=== PATIENT | female | born 1985 | race Caucasian/White ===

== ENCOUNTER 2017-12-28 11:28 | Emergency (ER) | payer SELFPAY ==
--- NOTE | 2017-12-28 12:13 | ER Document Report ---
HPI - HPI Patient complains to provider of: 40 pound weight fell on left foot Onset: Yesterday Pain Level: 3 Context: 32-year-old female moving to this area dropped a 40 pound weight on her left foot putting her bed back together, swollen and bruised. No previous injury. Associated Symptoms: None Exacerbated by: Walking Relieved by: Denies Similar symptoms previously: No Recently seen / treated by doctor: No - ROS ROS below otherwise negative: Yes Systems Reviewed and Negative: Yes All other systems reviewed and negative - MUSCULOSKELETAL Musculoskeletal: REPORTS: Extremity pain Past Medical History - General Information source: Patient - Social History Smoking Status: Unknown if Ever Smoked Lives with: Spouse/Significant other Family History: Reviewed & Not Pertinent Patient has suicidal ideation: No Patient has homicidal ideation: No - Medical History Medical History: Negative Renal/ Medical History: Denies: Hx Peritoneal Dialysis Surgical Hx: Negative Vertical Provider Document - CONSTITUTIONAL Agree With Documented VS: Yes - INFECTION CONTROL TRAVEL OUTSIDE OF THE [place] IN LAST 30 DAYS: No - MUSCULOSKELETAL/EXTREMETIES Musculoskeletal/Extremeties: MAEW, FROM, Tender, Edema - dorsal left foot over distal 1st MT, 2+ DP, Eccymosis - NEURO Level of Consciousness: Awake Course - Re-evaluation Re-evalutation: 12/28/17 12:41 X-rays negative per radiologist Chapo bandage/crutches will help and I will prescribe some Motrin and she can take Tylenol as well. 12/28/17 12:56 Procedures - Immobilization Left Foot Time completed: 12:52 Pre-Proc Neuro Vasc Exam: Normal Immobilizer type: Chapo wrap Performed by: PCT Post-Proc Neuro Vasc Exam: Normal Alignment checked and good: Yes Discharge - Discharge Clinical Impression: Contusion, Crush injury Condition: Good Disposition: HOME, SELF-CARE Instructions: Contusion ([facility]), Crush Injury ([facility]), Acetaminophen, Ibuprofen ( General) ([facility]), Chapo Wrap ([facility]) Additional Instructions: Chapo wrap for comfort Tylenol up to 4000 mg a day for pain Motrin 800 mg up to 3 times a day for pain See the orthopedic doctor if he continued to have a problem after 2 weeks Prescriptions: Ibuprofen [Motrin 800 mg Tablet] 800 mg PO Q8HP PRN #30 tablet PRN Reason: Referrals: AARON NICOLAS MD [ACTIVE STAFF] - Follow up as needed
[2017-12-28 12:23] VITALS: BP 109/61
--- NOTE | 2017-12-28 12:40 | RADIOLOGY REPORT (SQ) ---
EXAM DESCRIPTION: FOOT LEFT COMPLETE COMPLETED DATE/TIME: 12/28/2017 12:18 pm REASON FOR STUDY: crush injury COMPARISON: None. NUMBER OF VIEWS: Three views. TECHNIQUE: AP, lateral and oblique radiographic images acquired of the left foot. LIMITATIONS: None. FINDINGS: MINERALIZATION: Normal. BONES: No acute fracture or dislocation. No worrisome bone lesions. JOINTS: No effusions. SOFT TISSUES: No soft tissue swelling. No foreign body. OTHER: No other significant finding. IMPRESSION: NEGATIVE STUDY OF THE LEFT FOOT. NO RADIOGRAPHIC EVIDENCE OF ACUTE INJURY. TECHNICAL DOCUMENTATION: JOB ID: [id number] [employer]- All Rights Reserved Reading location - IP/workstation name: [email or web address]
== END 2017-12-28 12:52 | disposition home or self-care (01) ==
LOC: ER 11:28
DX: S90.32XA Contusion of left foot, initial encounter (principal); W20.8XXA Other cause of strike by thrown, projected or falling object, initial encounter; Y92.003 Bedroom of unspecified non-institutional (private) residence as the place of occurrence of the external cause
CPT/HCPCS: 99283

== ENCOUNTER 2018-02-15 12:39 | Emergency (ER) | payer SELFPAY ==
[2018-02-15] MEDS ORDERED: NORMAL SALINE 1000 ML 1,000 ML IV ONE (13:07)
[2018-02-15] MEDS ORDERED: DIPHENHYDRAMINE HCL 50 MG/ML VIAL IV ONE (13:08)
[2018-02-15] MEDS ORDERED: PROCHLORPERAZINE EDISYLATE INJ 10 MG/2 ML VIAL IV ONE (13:09)
--- NOTE | 2018-02-15 13:14 | ER Document Report ---
ED General - General Chief Complaint: Headache >24 hrs old Stated Complaint: HEADACHE Time Seen by Provider: 02/15/18 13:07 Mode of Arrival: Ambulatory Information source: Patient Notes: 32-year-old female presents emergency department with complaints of a headache for the last 7 days. Patient states that the headache is a sharp and stabbing sensation that starts at the temples and radiates to the occipital area into the neck. Patient had associated blurred vision and nausea. Patient states that she has had similar headaches in the past but they usually go away with Advil. Patient states that she has been taking Advil but the headache has not gone away after 7 days. It's been constant. Patient denies a history of migraine headaches. She denies any trauma, injury, fever, chills, speech changes, numbness, tingling, or weakness. I have greeted and performed a rapid initial assessment of this patient. A comprehensive ED assessment and evaluation of the patient, analysis of test results and completion of the medical decision making process will be conducted by additional ED providers. PHYSICAL EXAMINATION: GENERAL: Well-appearing, well-nourished and in no acute distress. HEAD: Atraumatic, normocephalic. EYES: Pupils equal round extraocular movements intact, conjunctiva are normal. ENT: Nares patent NECK: Normal range of motion. No tenderness to palpation of the paracervical muscles. LUNGS: No respiratory distress Musculoskeletal: Normal range of motion NEUROLOGICAL: Normal speech, normal gait. PSYCH: Normal mood, normal affect. SKIN: Warm, Dry, normal turgor, no rashes or lesions noted. TRAVEL OUTSIDE OF THE [place] IN LAST 30 DAYS: No - Related Data Allergies/Adverse Reactions: amoxicillin Allergy (Verified 02/15/18 12:41) Past Medical History - Social History Smoking Status: Never Smoker Chew tobacco use (# tins/day): No Frequency of alcohol use: None Drug Abuse: None Family History: Reviewed & Not Pertinent Patient has suicidal ideation: No Patient has homicidal ideation: No Renal/ Medical History: Denies: Hx Peritoneal Dialysis Past Surgical History: Reports: Hx Gynecologic Surgery - cone biopsy Physical Exam - Vital signs Vitals: Temp Pulse Resp BP Pulse Ox 97.8 F 71 20 119/65 100 02/15/18 12:48 02/15/18 12:48 02/15/18 12:48 02/15/18 12:48 02/15/18 12:48 Course - Vital Signs Vital signs: Temp Pulse Resp BP Pulse Ox 97.8 F 71 20 119/65 100 02/15/18 12:48 02/15/18 12:48 02/15/18 12:48 02/15/18 12:48 02/15/18 12:48
[2018-02-15] MEDS ORDERED: DIPHENHYDRAMINE HCL 25 MG CAPSULE ONE (13:23)
[2018-02-15] MEDS ORDERED: DIPHENHYDRAMINE HCL 25 MG CAPSULE PO ONE (13:24)
[2018-02-15 13:58] LABS: APPEARANCE,URINE SLIGHTLY-CLOUDY; BILIRUBIN,URINE NEGATIVE (NEGATIVE); COLOR,URINE YELLOW; GLUCOSE, URINE NEGATIVE (NEGATIVE); KETONES,URINE NEGATIVE (NEGATIVE); LEUKOCYTE ESTERASE,URINE NEGATIVE (NEGATIVE); NITRITE,URINE NEGATIVE (NEGATIVE); PROTEIN,URINE NEGATIVE (NEGATIVE); URINE SPECIFIC GRAVITY 1.021; UROBILINOGEN,URINE NEGATIVE mg/dL (<2.0)
--- NOTE | 2018-02-15 14:11 | ER Document Report ---
ED General - General Mode of Arrival: Ambulatory Information source: Patient TRAVEL OUTSIDE OF THE [place] IN LAST 30 DAYS: No - General Chief Complaint: Headache >24 hrs old Stated Complaint: HEADACHE Time Seen by Provider: 02/15/18 13:07 Notes: Patient is a 32 year old female with PCOS and anxiety presents to the emergency department complaining of a headache onset approximately 1 week ago. Patient describes her headache as a sharp and stabbing located at her temples that radiates into her occipital region and neck. Patient's associated symptoms include nausea, blurry vision, photophobia and numbness and tingling in fingers and hands bilaterally. Patient states she has had similar headaches in the past that is normally relieved with 200 mg of Advil. She states this current headache is different due to it radiating into her neck and not being relieved with Advil. Patient denies any recent heavy lifting. Patient states she feels better after receiving Benadryl and Compazine in triage. Patient is currently prescribed Xanax and Metformin. (DIANA HAYES) - Related Data Allergies/Adverse Reactions: amoxicillin Allergy (Verified 02/15/18 12:41) Past Medical History - General Information source: Patient - Social History Smoking Status: Never Smoker Chew tobacco use (# tins/day): No Frequency of alcohol use: None Drug Abuse: None Family History: Reviewed & Not Pertinent Patient has suicidal ideation: No Patient has homicidal ideation: No Psychiatric Medical History: Reports: Hx Anxiety Past Surgical History: Reports: Hx Gynecologic Surgery - cone biopsy Review of Systems - Review of Systems Constitutional: No symptoms reported EENT: See HPI, Blurred vision Cardiovascular: No symptoms reported Respiratory: No symptoms reported Gastrointestinal: See HPI, Nausea Genitourinary: No symptoms reported Female Genitourinary: No symptoms reported Musculoskeletal: No symptoms reported Skin: No symptoms reported Hematologic/Lymphatic: No symptoms reported Neurological/Psychological: See HPI, Headaches -: Yes All other systems reviewed and negative Physical Exam - General General appearance: Appears well - Wearing sunglasses at bedside., Alert In distress: None - HEENT Head: Normocephalic, Atraumatic, Tenderness - left parietal, occipital, temporal regions tender to palpation. Mucous membranes: Normal Neck: Other - Tender to palpation to the left posterior cervical muscles. Left trapezius tender to palpation. - Respiratory Respiratory status: No respiratory distress Chest status: Nontender Breath sounds: Normal Chest palpation: Normal - Cardiovascular Rhythm: Regular Heart sounds: Normal auscultation Murmur: No Friction rub: No Gallop: None auscultated - Abdominal Inspection: Normal - Back Back: Normal - Extremities General upper extremity: Normal ROM General lower extremity: Normal ROM - Neurological Neuro grossly intact: Yes Cognition: Normal Orientation: AAOx4 [place] Coma Scale Eye Opening: Spontaneous [place] Coma Scale Verbal: Oriented [place] Coma Scale Motor: Obeys Commands [place] Coma Scale Total: 15 Speech: Normal - Psychological Associated symptoms: Normal affect, Normal mood - Skin Skin Temperature: Warm Skin Moisture: Dry Skin Color: Normal - Vital signs Vitals: Temp Pulse Resp BP Pulse Ox 97.8 F 71 20 119/65 100 02/15/18 12:48 02/15/18 12:48 02/15/18 12:48 02/15/18 12:48 02/15/18 12:48 - Vital Signs Vital signs: Temp Pulse Resp BP Pulse Ox 97.7 F 70 20 109/70 99 02/15/18 14:22 02/15/18 14:22 02/15/18 12:48 02/15/18 14:22 02/15/18 14:22 - Laboratory Laboratory results interpreted by me: 02/15/18 13:20 Urine Blood SMALL H Discharge - Discharge Clinical Impression: Muscle tension headache Condition: Stable Disposition: HOME, SELF-CARE Additional Instructions: Tension Headache: Your problem has been diagnosed as muscle tension headache. This very common type of headache occurs because of tightness in the muscles of the head and neck. The cause may be neck or jaw joint problems, but most commonly the cause is emotional stress. The headache may last hours or days. The treatment of uncomplicated tension headaches is rest and pain medication. Often, the newer antiinflammatory pain medications are prescribed, as these also decrease the irritability of the painful tissues. Muscle relaxers , cold packs, or warm packs are sometimes helpful. Anti-anxiety medication or narcotics are sometimes needed temporarily, but are best avoided in the long run. Your doctor has evaluated your headache problem, and finds no evidence of a serious health problem as a cause for the headache. If your headache becomes more severe, or if new symptoms develop (such as fever, stiff neck, vomiting, or decreasing alertness) you should be re-examined by the physician. Try ice packs and/or moist heat applied to the painful muscles in your neck and scalp. Take the Compazine as prescribed with a dose of Benadryl and ibuprofen for headache as needed. Follow-up with a local medical doctor if not improving. RETURN TO THE EMERGENCY ROOM IF ANY NEW OR WORSENING SYMPTOMS. Prescriptions: Prochlorperazine Maleate [Compazine 10 mg Tablet] 10 mg PO ASDIR PRN #10 tablet PRN Reason: Referrals: ARUN RODRIGUEZ MD [Primary Care Provider] - Follow up as needed Raegan Attestation: 02/15/18 14:11 I personally performed the services described in the documentation, reviewed and edited the documentation which was dictated to the scribe in my presence, and it accurately records my words and actions. (GRISELDA CANTRELL) Fernandeze Documentation - Scribe Written by Raegan:: Raegan Leon, 02/15/2018 14:25 acting as scribe for :: Elvia
[2018-02-15 14:30] VITALS: BP 109/70
== END 2018-02-15 14:28 | disposition home or self-care (01) ==
LOC: ER 12:39
DX: G44.209 Tension-type headache, unspecified, not intractable (principal); F41.9 Anxiety disorder, unspecified; E28.2 Polycystic ovarian syndrome; R11.0 Nausea; H53.8 Other visual disturbances; H53.149 Visual discomfort, unspecified; R20.0 Anesthesia of skin; R20.2 Paresthesia of skin; Z79.899 Other long term (current) drug therapy
CPT/HCPCS: 99284; 96361; 96374; 81025; 81001; J0780; J7030

== ENCOUNTER 2019-02-17 21:24 | Emergency (ER) | payer OTHER ==
[2019-02-17 22:06] VITALS: BP 124/71
[2019-02-17] MEDS ORDERED: ACETAMINOPHEN 325 MG TABLET PO ONE (22:29)
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
--- NOTE | 2019-02-18 04:53 | RADIOLOGY REPORT (SQ) ---
CLINICAL HISTORY: head injury COMPARISON: None. TECHNIQUE: CT HEAD WITHOUT IV CONTRAST on 02/18/2019 1:55 AM CDT This exam was performed according to our departmental dose-optimization program, which includes automated exposure control, adjustment of the mA and/or kV according to patient size and/or use of iterative reconstruction technique. FINDINGS: There is no acute hemorrhage, mass effect or midline shift. Boggs-white differentiation is preserved. There is no hydrocephalus. There is no significant volume loss for age. There is a large left frontal scalp hematoma. The calvarium is intact. Orbits and globes are unremarkable. The paranasal sinuses are clear. There is fluid in bilateral mastoid air cells. IMPRESSION: No acute intracranial findings.
== END 2019-02-18 04:35 | disposition left against medical advice (07) ==
LOC: ER 21:24
DX: S06.0X0A Concussion without loss of consciousness, initial encounter (principal); R51 Headache; R41.0 Disorientation, unspecified; V87.7XXA Person injured in collision between other specified motor vehicles (traffic), initial encounter
CPT/HCPCS: 70450

== ENCOUNTER 2019-06-29 12:35 | Emergency (ER) | payer SELFPAY ==
--- NOTE | 2019-06-29 14:50 | ER Document Report ---
ED Flu Like - General Chief Complaint: Flu Symptoms Stated Complaint: EAR PAIN/BODYACHES/HEADACHES Time Seen by Provider: 06/29/19 14:44 Primary Care Provider: ARUN RODRIGUEZ MD [CONVERSION] - Follow up as needed Mode of Arrival: Ambulatory Information source: Patient Notes: 33-year-old female presented to ED for cough cold congestion sinus headache and fever off and on since 20 June. She states she has had more fevers and body aches for the last 2 to 3 days. Patient is alert oriented respirations regular nonlabored speaking in full sentences. TRAVEL OUTSIDE OF THE [place] IN LAST 30 DAYS: No - HPI Onset: Other - More than a week Timing/Duration: Intermittent Quality of pain: Achy, Pressure Severity: Mild Pain Level: 1 Associated symptoms: Body/muscle aches, Fever, Rhinnorhea, Sinus pain/drainage Similar symptoms previously: Yes Recently seen / treated by doctor: No - Related Data Allergies/Adverse Reactions: amoxicillin Allergy (Verified 06/29/19 14:43) Past Medical History - General Information source: Patient - Social History Smoking Status: Never Smoker Frequency of alcohol use: Rare Drug Abuse: None Lives with: Family Family History: Reviewed & Not Pertinent - Past Medical History Cardiac Medical History: Reports: Hx Hypercholesterolemia Pulmonary Medical History: Reports: None EENT Medical History: Reports: None Neurological Medical History: Reports: None Endocrine Medical History: Reports: None Renal/ Medical History: Reports: Hx Ovarian Cysts Malignancy Medical History: Reports: None GI Medical History: Reports: None Musculoskeletal Medical History: Reports None Skin Medical History: Reports None Psychiatric Medical History: Reports: Hx Anxiety, Hx Bipolar Disorder Traumatic Medical History: Reports: None Infectious Medical History: Reports: None Past Surgical History: Reports: Hx Gynecologic Surgery - cone biopsy - Immunizations Immunizations up to date: Yes Hx Diphtheria, Pertussis, Tetanus Vaccination: Yes Review of Systems - Review of Systems Constitutional: No symptoms reported EENT: No symptoms reported Cardiovascular: No symptoms reported Respiratory: No symptoms reported Gastrointestinal: No symptoms reported Genitourinary: No symptoms reported Female Genitourinary: No symptoms reported Musculoskeletal: No symptoms reported Skin: No symptoms reported Hematologic/Lymphatic: No symptoms reported Neurological/Psychological: No symptoms reported -: Yes All other systems reviewed and negative Physical Exam - Vital signs Vitals: Temp Pulse Resp BP Pulse Ox 98.1 F 70 20 136/77 H 96 06/29/19 12:44 06/29/19 12:44 06/29/19 12:44 06/29/19 12:44 06/29/19 12:44 Interpretation: Normal - General General appearance: Appears well, Alert - HEENT Head: Normocephalic, Atraumatic Eyes: Normal Pupils: PERRL Ears: Normal External canal: Normal Tympanic membrane: Normal Sinus: Normal Nasal: Purulent discharge, Swelling Mouth/Lips: Normal Mucous membranes: Normal Pharynx: Post nasal drainage Neck: Normal - Respiratory Respiratory status: No respiratory distress Chest status: Nontender Breath sounds: Nonproductive cough Chest palpation: Normal - Cardiovascular Rhythm: Regular Heart sounds: Normal auscultation Murmur: No - Abdominal Inspection: Normal Distension: No distension Bowel sounds: Normal Tenderness: Nontender Organomegaly: No organomegaly - Back Back: Normal, Nontender - Extremities General upper extremity: Normal inspection, Nontender, Normal color, Normal ROM, Normal temperature General lower extremity: Normal inspection, Nontender, Normal color, Normal ROM, Normal temperature, Normal weight bearing. No: Brett's sign - Neurological Neuro grossly intact: Yes Cognition: Normal Orientation: AAOx4 [place] Coma Scale Eye Opening: Spontaneous [place] Coma Scale Verbal: Oriented [place] Coma Scale Motor: Obeys Commands [place] Coma Scale Total: 15 Speech: Normal Motor strength normal: LUE, RUE, LLE, RLE Sensory: Normal - Psychological Associated symptoms: Normal affect, Normal mood - Skin Skin Temperature: Warm Skin Moisture: Dry Skin Color: Normal Course - Re-evaluation Re-evalutation: 06/30/19 02:37 After performing a Medical Screening Examination, I estimate there is LOW risk for any life threatening rash. At this time the patient looks extremely well and there are no signs of systemic infection, however this may change at any time and the rash may change. I have reevaluated this patient multiple times and no significant life threatening changes are noted. The patient and I have discussed the diagnosis and risks, and we agree with discharging home with close follow- up with the understanding that symptoms and presentations can change. We also discussed returning to the Emergency Department immediately if new or worsening symptoms occur. We have discussed the symptoms which are most concerning (e.g., changing or worsening pain, fever, numbness, weakness, cool or painful digits) that necessitate immediate return. - Vital Signs Vital signs: Temp Pulse Resp BP Pulse Ox 98.4 F 64 16 118/74 98 06/29/19 14:57 06/29/19 14:57 06/29/19 14:57 06/29/19 14:57 06/29/19 14:57 Discharge - Discharge Clinical Impression: Otalgia of both ears URI (upper respiratory infection) Qualifiers: URI type: unspecified viral URI Qualified Code(s): J06.9 - Acute upper respiratory infection, unspecified Condition: Stable Disposition: HOME, SELF-CARE Additional Instructions: UPPER RESPIRATORY ILLNESS: You have a viral infection of the respiratory passages -- a "cold." This common infection causes nasal congestion, drainage, and often sore throat and cough. It is highly contagious. The disease usually lasts about 10 to 14 days. There is no "cure" for the viral infection -- it must run its course. If there is a complication, such as bacterial infection in the nose, sinuses, middle ear, or bronchial tubes, antibiotics may be required. The antibiotics won't affect the virus. Drink plenty of fluids. A humidifier may help. An expectorant medication or decongestant may make you more comfortable. Use acetaminophen or ibuprofen for fever or aches. See the doctor if fever persists over two days, if there is any significant worsening of your symptoms, or if you simply fail to improve as expected. You have been recommended treatment with Claritin 10 mg Sudafed 30 mg and Mucinex 600 mg. These are all [id number] medications for cough cold congestion. You do need to call the go to the pharmacist to get the Sudafed from behind the counter please get a little red pills they are more effective. You could also use Flonase which is [id number] 1 spray each nostril twice a day. You could also use salt soda solution gargles. These will help to remove the drainage from the back your throat. Chloraseptic spray was [id number] that will also help with your sore throat. Salt and soda solution gargle 1 quart of water 1 tablespoon of salt 1 teaspoon of baking soda Mixed 3 ingredients together and boil for 1 minute Placed in a covered quart jar Use 1/2 ounce of cold solution to gargle 3 times a day USE OF ACETAMINOPHEN (Tylenol): Acetaminophen may be taken for pain relief or fever control. It's much safer than aspirin, offering a wider range of "safe" dosages. It is safe during . Some brand names are Tylenol, Panadol, Datril, Anacin 3, Tempra, and Liquiprin. Acetaminophen can be repeated every four hours. The following are maximum recommended dosages: >89 pounds or adults 650 mg to 900 mg Acetaminophen can be repeated every four hours. Maximum dose not to exceed 4000 mg a day. FOLLOW-UP CARE: If you have been referred to a physician for follow-up care, call the physicians office for an appointment as you were instructed or within the next two days. If you experience worsening or a significant change in your symptoms, notify the physician immediately or return to the Emergency Department at any time for re-evaluation. Forms: Elevated Blood Pressure Referrals: ARUN RODRIGUEZ MD [CONVERSION] - Follow up as needed
[2019-06-29 14:59] VITALS: BP 118/74
== END 2019-06-29 14:59 | disposition home or self-care (01) ==
LOC: ER 12:35
DX: J06.9 Acute upper respiratory infection, unspecified (principal); H92.03 Otalgia, bilateral; R05 Cough; R09.81 Nasal congestion; R51 Headache; R50.9 Fever, unspecified; M79.10 Myalgia, unspecified site; J34.89 Other specified disorders of nose and nasal sinuses; Z88.1 Allergy status to other antibiotic agents
CPT/HCPCS: 99283